=== PATIENT | female | born 1940 | race Caucasian/White ===

== ENCOUNTER → 2017-08-19 | Outpatient (CLI) | payer OTHER | LOC: M.RAD 09:51 | DX: M79.89 Other specified soft tissue disorders (principal); M79.671 Pain in right foot ==

== ENCOUNTER → 2019-01-24 | Outpatient (CLI) | payer OTHER | LOC: M.RAD 12:02 | DX: M47.814 Spondylosis without myelopathy or radiculopathy, thoracic region (principal); M47.816 Spondylosis without myelopathy or radiculopathy, lumbar region; M41.84 Other forms of scoliosis, thoracic region; M41.86 Other forms of scoliosis, lumbar region ==

== ENCOUNTER → 2019-02-10 | Outpatient (CLI) | payer OTHER ==
[~2019-02-10] MED LIST: ASA81BEC PO; CALCIUM + VITA1 EACH PO; FISH OIL 1,0001 EAC9 PO; GABAPENTIN100 MG PO; KLOR-CON M2020 MEQ PO; MAGNESIUM250 M1 PO; TRAMADOL 50 MG50 MG PO; ZESTRIL30 MG PO
== END ==
LOC: M.ULTRA 07:20
DX: R10.9 Unspecified abdominal pain (principal)

== ENCOUNTER 2019-02-26 09:38 | Inpatient (IN) | payer OTHER ==
[~2019-02-26] VITALS: Ht 157.5 cm; Wt 50.8 kg
[2019-02-26 09:47] VITALS: BP 124/49
[2019-02-26] MEDS ORDERED: GABAPENTIN100 MG PO (09:53)
[2019-02-26] MEDS ORDERED: TRAMADOL 50 MG50 MG PO (09:53)
[2019-02-26] MEDS ORDERED: ZESTRIL30 MG PO (09:53)
[2019-02-26 10:55] LABS: HEMATOCRIT 28.8 % (37.0-47.0); HEMOGLOBIN 9.7 gm/dL (12.0-15.0); MCH 28.8 pg (26.0-34.0); MCHC 33.7 g/dL (28.0-37.0); MCV 85.6 fL (80.0-100.0); MPV 7.4 fl. (7.2-11.1); NUCLEATED RBCS 0 /100WBC; PLATELET COUNT* 330 thou/uL (150-400); RBC 3.37 mil/uL (4.20-5.00); RDW-CV 14.1 % (10.5-14.5); WBC 17.8 thou/uL (4.0-11.0)
[2019-02-26 11:01] LABS: CREATININE 0.8 mg/dL (0.6-1.3); POTASSIUM 4.8 mmol/L (3.5-5.1)
[2019-02-26 11:06] LABS: ALBUMIN 2.2 g/dL (3.4-5.0); TOTAL BILIRUBIN 0.6 mg/dL (<0.1-1.0); TOTAL PROTEIN 6.9 g/dL (6.4-8.2)
[2019-02-26 11:10] LABS: URINE BILIRUBIN NEGATIVE (Negative); URINE BLOOD 1+ (Negative); URINE CLARITY CLEAR; URINE COLOR DARK YELLOW; URINE GLUCOSE-RANDOM NEGATIVE (Negative); URINE KETONES NEGATIVE (Negative); URINE LEUKOCYTES-REFLEX NEGATIVE (Negative); URINE NITRITE-REFLEX NEGATIVE (Negative); URINE PROTEIN 1+ (Negative); URINE SPECIFIC GRAVITY 1.025 (1.005-1.030); URINE UROBILINOGEN 0.2 E.U./dl (0.2-1.0)
[2019-02-26 11:27] LABS: SQUAMOUS 0-3 Few /LPF (0-3); URINE RBC 0-2 Rare /HPF (0-2); URINE WBC-REFLEX 0-5 Rare /HPF (0-5)
[2019-02-26 11:28] LABS: CRYSTALS None Seen /LPF (None Seen); HYALINE CASTS 4-10 Moderate /LPF (None Seen); MUCUS 4-6 Moderate strn/LPF (None Seen)
[2019-02-26 11:48] LABS: ABSOLUTE LYMPHOCYTES 1.6 thou/uL (0.8-5.3); ABSOLUTE MONOCYTES 1.2 thou/uL (0.0-1.2); METAMYELOCYTES 2 %; PLATELET ESTIMATE ADEQUATE
[2019-02-26 12:59] VITALS: BP 133/58
[2019-02-26] MEDS ORDERED: ASA81BEC PO (13:43)
[2019-02-26] MEDS ORDERED: CALCIUM + VITA1 EACH PO (13:44)
[2019-02-26] MEDS ORDERED: FISH OIL 1,0001 EAC9 PO (13:44)
[2019-02-26] MEDS ORDERED: MAGNESIUM250 M1 PO (13:45)
[2019-02-26] MEDS ORDERED: KLOR-CON M2020 MEQ PO (13:45)
[2019-02-26 14:07] VITALS: BP 131/58
--- NOTE | 2019-02-26 17:01 | NUR ---
PT REMAINED ALERT AND ORIENTED. PAIN MEDS GIVEN ORDERED. FALL RISK PRECAUTIONS IN PLACE. HOURLY ROUNDING COMPLETED. WILL CONTINUE TO MONITOR.
--- NOTE | 2019-02-27 02:49 | NUR ---
PATIENT AWAKE AND ORIENTED X 4 THROUGHOUT THE SHIFT. DIFFICULT PAIN MANAGEMENT WITH ALTERNATING IV NARCOTICS GIVEN AT 2300 AND 0200 WITH PATIENT STILL RESTLESS WITH PAIN. MESSAGE OUT FOR MD REGARDING PAIN MANAGEMENT. UP TO BSC WITH MOD ASSIST. O2 AT 3L/MIN. HUMIDITY PROVIDED. PATIENT WITH FREQUENT REQUESTS TO SIT UP IN BED TO THEN TO LIE BACK DOWN AFTER LESS THAN A MINUTE. CAN'T GET COMFORTABLE. DAUGHTER AT BEDSIDE. BED ALARM ON FOR SAFETY. CONTINUE TO MONITOR.
--- NOTE | 2019-02-27 03:19 | NUR ---
0303 PHYSICIAN RECEIVED MESSAGE REGARDING FURTHER ORDER REQUEST FOR PAIN MANAGEMENT. NO NEW ORDERS AT THIS TIME. PATIENT AND DAUGHTER UPDATED. WILL CONTINUE TO UPDATE IF ORDERS COME IN. PLANNED ANALGESIC AVAILABLE AT 0400.
--- NOTE | 2019-02-27 04:31 | NUR ---
RETURN CALL FROM DR. CHEN WITH NEW ORDERS FOR NOW DOSE IV DILAUDID AND TO START OXYCODONE IMMEDIATE RELEASE QID SCHEDULED. PATIENT AND DAUGHTER UPDATED ON PLAN OF CARE. NOW DOSE OF IV DILAUDID PROVIDED. NO NEW EVENTS. PATIENT CURRENTLY RESTING QUIETLY WITH EYES CLOSED, REGULAR UNLABORED RESPIRATIONS. CONTINUE TO MONITOR.
[2019-02-27 07:30] VITALS: BP 141/52
[2019-02-27 08:00] LABS: ABSOLUTE BASOPHILS 0.1 thou/uL (0.0-0.2); ABSOLUTE EOSINOPHILS 0.1 thou/uL (0.0-0.7); ABSOLUTE LYMPHOCYTES 1.5 thou/uL (0.8-5.3); ABSOLUTE MONOCYTES 1.3 thou/uL (0.0-1.2); ABSOLUTE NEUTROPHILS 12.9 thou/uL (1.6-8.1); BASOPHILS 0.3 %; EOSINOPHILS 0.6 %; HEMATOCRIT 25.2 % (37.0-47.0); HEMOGLOBIN 8.5 gm/dL (12.0-15.0); LYMPHOCYTES 9.3 %; MCH 29.5 pg (26.0-34.0); MCHC 33.9 g/dL (28.0-37.0); MCV 86.9 fL (80.0-100.0); MONOCYTES 8.5 %; MPV 7.4 fl. (7.2-11.1); NUCLEATED RBCS 0 /100WBC; PLATELET COUNT* 317 thou/uL (150-400); POLYS 81.3 %; RDW-CV 14.3 % (10.5-14.5); WBC 15.9 thou/uL (4.0-11.0)
[2019-02-27 08:16] LABS: CALCIUM 9.4 mg/dL (8.5-10.1); CREATININE 0.7 mg/dL (0.6-1.3); POTASSIUM 4.4 mmol/L (3.5-5.1)
[2019-02-27 10:35] LABS: APTT 32.6 Seconds (25.0-31.3); INR 1.3
[2019-02-27 11:01] LABS: % SATURATION 12 % (20-39); IRON 18 ug/dL (50-175)
[2019-02-27 15:34] VITALS: BP 106/48
--- NOTE | 2019-02-27 17:06 | NUR ---
pt remained alert and oriented. pain meds given as ordered. assist to bedside commode. npo after midnight for liver biopsy tomorrow. fall risk precautions in place. hourly rounding completed. will continue to monitor.
[2019-02-27 22:00] VITALS: BP 109/50
--- NOTE | 2019-02-28 03:44 | NUR ---
PATIENT APPEARING SOUNDLY ASLEEP AT SHIFT CHANGE TO 2200 WHEN AWAKENED FOR ROUTINE VITAL SIGNS. DROWSY BUT ORIENTED. FORGETFUL. UP TO BSC WITH MOD ASSIST AT THIS TIME. AT REQUEST, PAIN MEDICATION 2300. SEEMS OBVIOUSLY SEDATED WITH MEDICATION BUT IN REPORTED TERRIBLE PAIN WITHOUT MEDICATION. CONTINUES WITH POOR ORAL INTAKE. NO BM'S THIS SHIFT. O2 ON AT 3L/MIN HUMIDIFIED BY NASAL CANNULA. O2 SATS 94-95% WITH VITAL SIGNS STABLE/AFEBRILE. NPO AT MIDNIGHT FOR LIVER BX THIS AM. DAUGHTER (ONE OF FIVE CHILDREN) AT BEDSIDE TONIGHT. BED ALARM ON FOR SAFETY. CONTINUE TO MONITOR.
[2019-02-28 07:45] VITALS: BP 106/39
--- NOTE | 2019-02-28 12:00 | NUR ---
MET WITH PT'S DTR/RICHAR AT BEDSIDE. PT SEDATED FROM PAIN MEDS PER NURSE. NO OTHER FAMILY PRESENT. RICHAR DID MEET WITH DR CHEN THIS AM AND AWARE OF POC, REC: IS HOSPICE. PT LIVES ALONE, HAD BEEN MANAGING ON HER OWN UNTIL RECENTLY. NEW DX OF POSSIBLE CA. PER RICHAR, THE PT AND FAMILY NOT WANTING HEROIC MEASURES. COPY OF DPOA ON CHART, PEGGY. PLAN TO MEET WITH MORE FAMILY THIS AFTERNOON TO DISCUSS HOSPICE AND OPTIONS. BRIEFLY GAVE OVERVIEW OF HOSPICE OPTIONS TO RICHAR.
--- NOTE | 2019-02-28 19:00 | NUR ---
PATIENT NOTED LETHARGIC THRU SHIFT. BM THIS AM W/ ASST X2 AND GAIT BELT TO BSC, UP TO RECLINER BRIEFLY BEFORE REQUESTING TO GO BACK TO BED. PATIENT REPOSITIONED TOLERATED. SEE MAR. FAMILY MEMBERS PRESENT IN THRU SHIFT. O2 INCREASED TO 4L/NC THIS AFTERNOON, PATIENT NOTED MOUTH BREATHING. CURRENTLY RESTING IN BED W/ FAMILY MEMBERS AT BEDSIDE. CALL LIGHT IN REACH. FAMILY MEMBERS INSTRUCTED TO CALL W/ NEEDS. PATIENT HAS EYES CLOSED, CALM. NO ACUTE DISTRESS NOTED. ~TJRN
[2019-02-28 19:45] VITALS: BP 120/57
[2019-03-01 07:30] VITALS: BP 151/67
--- NOTE | 2019-03-01 08:09 | NUR ---
PATIENT HAS BEEN ANXIOUS DURING THE NIGHT AND RESTLESS. IV PAIN MEDICATIONS GIVEN ORDERED TO HELP WITH PAIN. PATIENT VERY LETHARGIC, DISORIENTED AND CONFUSED. FAMILY MEMBER AT BEDSIDE. VSS ON 4L 02 VIA NASAL CANNULA. PATIENT NOT TAKING PO MEDICATIONS. PATIENT INCONTINENT OF BOWEL AND BLADDER AND ARMIN CARE PERFORMED. IV IN LEFT AC-SL. PATIENT IS UP AT TIMES BUT WITH MAX ASSIST AND IS VERY WEAK AND HARD TO WORK WITH GETTING TO BSC. STARTED USING BEDPAIN DURING THE NIGHT. HOURLY ROUNDS MADE. WILL CONTINUE WITH PLAN OF CARE AND NURSING TO MONITOR.
--- NOTE | 2019-03-01 08:28 | CON ---
[address] [address] CONSULTATION Name: AURELIO SAGE Room: [address] IN M.R.#: [id number] Admission: 02/26/19 Attend Phys: Natalie eDlong MD Discharge: Date of : 36 Report #: [id number] THIS REPORT FOR: //name// CC: NATALIE Velazco MD REASON FOR CONSULTATION: Probable metastatic cancer. HISTORY OF PRESENT ILLNESS: The patient is a very pleasant 78-year-old female from the region who has about a 6-7 week history of feeling poorly with back pain in her midback. Also, 10-pound weight loss, anorexia, not really any fevers, may be a slight cough, abdominal discomfort, had vomited twice last week. No blood in her urine or stool. No headaches. No swallowing difficulties, who here was found to have on a CAT scan innumerable liver masses and also some spots in the bottom of her lung and possibly gastric wall thickening. Her lab was also notable for anemia. PAST MEDICAL HISTORY: Notable for hypertension and tongue surgery likely 7 years ago. SOCIAL HISTORY: She smoked for about 60 years. No significant alcohol, no street drugs. Her hobby is being involved with the zoroastrianism. FAMILY HISTORY: Father had heart trouble. Mother had cancer found in her liver which was older, unclear primary. She had a sister with breast cancer about age 78, has 5 children without specific health issues. MEDICATIONS: Current medications include Xanax 0.5 q.6 h. p.r.n. p.o., Dulcolax p.r.n., pantoprazole 40 mg daily p.o., OxyIR 10 mg q.i.d., Lovenox 40 mg at bedtime subcutaneous, and ceftriaxone 50 mL IV push bolus. Hydralazine p.r.n., Zofran p.r.n., MiraLAX 17 g daily as needed, Tylenol p.r.n., fentanyl 50 mcg q. 2 p.r.n., hydromorphone 1 mg q.4 p.r.n. IV, and IV fluid. PHYSICAL EXAMINATION: VITAL SIGNS: The patient is 5 feet 2 inches, which is 157.5 cm tall, weight is 112 pounds or 50.8 kg. Blood pressure recently 141/52, O2 sat 95%. She is on oxygen. Respirations 16, pulse low at 51 and 46, temperature afebrile at 98. MOOD: She is pleasant, but drifts off to sleep or doses periodically a while after the question, probably from her current medications. NEUROLOGIC: Her face appears symmetrical. LYMPHATICS: No enlarged lymph nodes in the supraclavicular or cervical region. HEART: Regular rate. LUNGS: Without any rhonchi, rales, or symmetric respiration which does not appear to bother her. ABDOMEN: The liver is enlarged down to [place] [address] CONSULTATION Name: AURELIO SAGE Room: [address]#: [id number] Admission: 02/26/19 Attend Phys: Natalie Delong MD Discharge: Date of : 36 Report #: [id number] EXTREMITIES: Without clubbing, cyanosis. There is some trace edema. LABORATORY DATA: Notable for AST of 117, total bilirubin 0.6, alkaline phosphatase 318, ALT 129, total protein 6.9 with albumin of 2.2. White count 15.9, hemoglobin 8.5, MCV 86.9, RDW 14.3, platelet count 317. Differential shows an increase in neutrophils with an ANC of 12,900 and slight increase in monocytes. UA showed bacteria, mucus with a few squamous cells. CAT scan or radiology studies include the note that there were some soft tissue lung nodules back in 2017. The more recent CT abdomen and pelvis from 03/08/2019 shows numerous bibasilar mixed solid and semisolid ground-glass pulmonary and pleural based nodules, largest measures about 1 cm. There is trace right pleural effusion. Abdomen is enlarged. Innumerable masses are present in both lobes measuring up to 6 cm. Perihepatic ascites is present. Portal vein appears normal without obvious filling defects. Spleen is normal in size. There are bilateral adrenal masses measuring 3.8 on the right, 3.5 in the left. Diverticula seen without evidence of inflammation. No destructive bone lesions detected. There is spondylosis at L4-5. No pelvic adenopathy. No free fluid. ASSESSMENT AND PLAN: 1. CT scan showing liver masses and bilateral lung masses with thickened gastric wall, though we note that the CT from several years ago also raised a question of soft tissue lung nodules. We will await liver biopsy. Discussed with the patient and family. This likely represents cancer, unlikely infection and the fact that she was not having fevers or chills. Given the weight loss, I would be concerned and also liver function. If this would be really been present for 3 years, it is possible this may be something like a carcinoid which has been slow growing. We will await pathology and discuss with family. If this continues to progress and does not respond to therapy, then prognosis may be limited to several months. We did discuss that once we find out what type of cancer this is, there may be some additional testing to see if there is any targeted mutations such as PD-L1 or MSI stability as examples and then we can discuss with my partners and her whether any therapy is worthwhile trying or not. 2. Anemia, unclear if this is new or old. This might have suggested that this could be a GI primary. We will check iron, B12, folate, retic count, may need to consider GI evaluation. 3. Tobacco history. Encouraged cessation. 4. Back pain. Continues on narcotics and may need to adjust them. If the patient's back pain is thought to be visceral, they might be to consider plexus block. 5. Hypertension per [place] [address] CONSULTATION Name: AURELIO SAGE Room: [address] [place] .R.#: [id number] Admission: 02/26/19 Attend Phys: Natalie Delong MD Discharge: Date of : 36 Report #: [id number] 6. Bacteriuria, possibly contributing to mental status and pain. Agree with antibiotics. <ELECTRONICALLY SIGNED> By: Virgil Morales MD 03/01/19 0828 [id number] Morales MD /nt
--- NOTE | 2019-03-01 12:15 | NUR ---
CLARIFIED WITH INTAKE/ HOSPICE THAT MEETING WILL BE AT 1600 TODAY WITH FAMILY. SPOKE WITH PT.'S DAUGHTER'S-ALEXY. THEY ARE AWARE OF MEETING TIME TODAY. THEY SAID THEIR BROTHERS WILL BE HERE,ALSO. OUTSIDE OF HOSPITAL DNR FORM THAT HAS SIGNED ON FRONT OF CHART. WILL NEED TO BE SIGNED BY DPOA PRIOR TO DISCHARGE.
--- NOTE | 2019-03-01 17:52 | NUR ---
COMFORT CARE MEASURES. MORPHINE DRIP STARTED AND RUNNING. FENTANYL PATCH AND SCOPOLAMINE PATCH IN PLACE. ACSTRO IN PLACE. SUCTION SET UP. DARK BROWN SECRETIONS PRESENT. ATROPINE DROPS ORDERED. FALL RISK PRECAUTIONS IN PLACE. HOURLY ROUNDING COMPLETED. WILL CONTINUE TO MONITOR.
--- NOTE | 2019-03-02 05:00 | NUR ---
PATIENT REMAINS ON COMFORT CARE. HOURLY ROUNDS MADE. OXYGEN AT 4L STILL ON, CHECKED O2 SEVERAL TIMES IT STAYED AT 84-85%. ASSESSED FOR ANXIETY. MORPHINE 10 ML IV. SUCTIONED AND MOUTH MOISTURIZER APPLIED. WILL CONTINUE TO FOLLOW PLAN OF CARE.
[2019-03-02 07:40] VITALS: BP 64/28
--- NOTE | 2019-03-02 16:00 | NUR ---
HOSPICE HOUSE WILL NOT HAVE A BED UNTIL TOMORROW. AWARE. FAMILY INFORMED. DAUGHTER/DPOA GLORIA,ASKING WHAT TIME TRANSFER WILL TAKE PLACE TOMORROW. TOLD HER MOST LIKELY BETWEEN 10-12 TOMORROW. SHE THINKS SHE WILL GO HOME TONIGHT AND MEET MOM AT HOSPICE HOUSE. SHE SAID HER OTHER 2 SISTERS WILL BE HERE. GLORIA SIGNED OUT OF HOSPITAL DNR FORM. IT IS ON FRONT OF CHART.
--- NOTE | 2019-03-02 18:43 | NUR ---
PT DURING THIS SHIFT. SUPERVISER AND PHYSICIAN NOTIFIED. FAMILY PRESENT AT THE TIME. [facility] CALLED. HOME CALLED. PT CLEANED, CASTRO REMOVED, AND IV REMOVED. FAMILY AT BEDSIDE, AWAITING SUPERVISOR [employer]LLER [employer]. WILL CONTINUE TO MONITOR.
--- NOTE | 2019-03-03 09:28 | NUR ---
NOTIFIED GUTIERREZ/ HOSPICE THAT PT. YESTERDAY EVENING.
== END 2019-03-02 17:28 | DRG 180 ==
LOC: M.ERS 09:38 → M.TBA-ER 12:44 → M.ORTHSURG 12:44
PROVIDERS: Internal Medicine Hematology & Oncology; Nurse Practitioner Family; ADMIT Internal Medicine
DX: C78.00 Secondary malignant neoplasm of unspecified lung (principal); J96.20 Acute and chronic respiratory failure, unspecified whether with hypoxia or hypercapnia; N39.0 Urinary tract infection, site not specified; E87.1 Hypo-osmolality and hyponatremia; D64.9 Anemia, unspecified; F17.210 Nicotine dependence, cigarettes, uncomplicated; J44.9 Chronic obstructive pulmonary disease, unspecified; D72.829 Elevated white blood cell count, unspecified; I10 Essential (primary) hypertension; C80.1 Malignant (primary) neoplasm, unspecified; Z51.5 Encounter for palliative care; Z66 Do not resuscitate; Z79.899 Other long term (current) drug therapy; Z79.82 Long term (current) use of aspirin; Z79.2 Long term (current) use of antibiotics; Z71.6 Tobacco abuse counseling; Z80.0 Family history of malignant neoplasm of digestive organs; Z80.3 Family history of malignant neoplasm of breast